=== PATIENT | male | born 1945 | race Caucasian/White ===

== ENCOUNTER 2019-10-16 08:46 | Inpatient (IN) | payer MEDICARE, SELFPAY ==
[2019-10-14 08:47] VITALS: BMI 33.7
[2019-10-16] VITALS (10 sets, daily range): BP systolic 107–153; BP diastolic 53–90; PULSE 73–86; RESP 15–20; TEMP 36.1–36.9; O2SAT 89–97; BMI 32.8
--- NOTE | 2019-10-16 | DI.RAD.S_ITS ---
PROCEDURE: XR HIP W PEL IF DONE RT 4V INDICATIONS: ANTERIOR HIP ARTHROPLASTY TECHNIQUE: For operative views of the hip acquired. COMPARISON: None. FINDINGS: Bones: Patient is status post total right hip hip arthroplasty, with hardware components in expected positions. The hip joint appears congruent. The visualized bony structures appear intact. Soft tissues: Overlying postoperative changes are noted. No suspicious soft tissue densities. IMPRESSION: Operative images demonstrate total right hip arthroplasty with no evidence of complications. Dictated by: Tahir Whitehead M.D. on 10/16/2019 at 14:29 Approved by: Tahir Whitehead M.D. on 10/16/2019 at 14:29
--- NOTE | 2019-10-16 06:00 | DI.RAD.S_ITS ---
PROCEDURE: XR HIP W PEL IF DONE RT 2V INDICATIONS: post op TECHNIQUE: 2 view(s) of the hip acquired. COMPARISON: [facility], CR, XR HIP W PEL IF DONE RT 4V, 10/16/2019, 12:04. FINDINGS: Bones: Patient is status post right total hip arthroplasty, with hardware components in expected positions. The hip joint appears congruent. The visualized bony structures appear intact. Soft tissues: Overlying postoperative changes are noted. No suspicious soft tissue densities. IMPRESSION: Post right total hip arthroplasty changes with anatomic right hip alignment. Dictated by: Itz Deng M.D. on 10/16/2019 at 20:00 Approved by: Itz Deng M.D. on 10/16/2019 at 20:00
[2019-10-16] MEDS: ACETAMINOPHEN 325 MG TABLET 975 MG PO (09:15)
[2019-10-16] MEDS: CELECOXIB 200 MG CAPSULE PO (09:16)
[2019-10-16] MEDS: PREGABALIN 75 MG CAPSULE PO (09:16)
[2019-10-16] MEDS: LACTATED RINGERS 1,000 ML 42 ML IV ×3 (09:17→14:01)
[2019-10-16] MEDS: VANCOMYCIN 1,000 MG/200 ML PIGGYBACK 200 MG IV (09:27)
--- NOTE | 2019-10-16 10:20 | PM.PREOP ---
Pre-operative Note Interval Note History & Physical reviewed/Exam performed by Physician: Yes Changes to H&P: No
--- NOTE | 2019-10-16 10:20 | PM.OP.1 ---
Operative Date/Time/Diagnoses Date of procedure: 10/16/19 Time of procedure: 10:50 Pre-op diagnosis: right hip OA Post-op diagnosis: same Procedure & Clinicians Procedure: right total hip arthroplasty anterior Same procedure as scheduled: Yes Indications: The patient has had progressively worsening right hip pain with radiographic changes consistent with arthritis. Non-operative management has failed and the patient has requested total hip replacement. The risks, benefits and alternatives to surgery were discussed with the patient prior to proceeding. Risks discussed included, but were not limited to, failure to relieve pain, leg length discrepancy, dislocation, stiffness, infection, nerve damage, deep venous thrombosis, pulmonary embolism, stroke, coma, heart attack, permanent paralysis and , as well as the potential need for eventual revision of the prosthetic. Surgeon: Steff Sal Cosmetic Counselor: Marcia Ramirez Anesthesia Type: General and Spinal Operative Notes Findings: Severe right hip osteoarthritis, adequate quality bone, good stability Closure Type: primary Specimen(s): none sent Prosthetic devices, grafts, tissues, transplants, or devices: Sal and Nephew 58 mm R3 cup, size 7 standard anthology, +0 by 36mm oxinium Estimated Blood Loss (mL): 250 Blood products transfused: none Procedure in detail: The patient was brought to the operating room. Patient was carefully positioned in the supine position. Time-out was performed and antibiotics were given. Anesthesia was induced. He was positioned in the on the table in order to allow hyperextension of the hip. The right lower extremity was prepped and draped in a standard sterile fashion. An anterior right hip incision was made 1 fingerbreadth lateral to the anterior superior iliac spine and extended distally towards the greater trochanter. Dissection was carried out through skin and subcutaneous tissues. The skin and subcutaneous tissues were carefully injected with Lidocaine with epi. Superficial hemostasis was achieved. The fascia over the tensor fascia arvin was defined and incised with a knife. Two Allis clamps were used to grasp the fascia. Tensor fascia arvin was retracted laterally. A gelpi retractor was placed. Dissection was carried out down along the neck. The circumflex vessels were carefully identified and cauterized with the Aqua Mantis. There was good visualization of the femoral neck. A Cobra was placed superior to the neck and the gluteus fibers were carefully stripped from that superior aspect of the capsule. A 2nd retractor was placed along the inferior aspect of the neck. The rectus insertion along the capsule was partially released. A 3rd retractor that was then gently placed over the rim of the acetabulum under the rectus. Capsule was carefully incised and released from the intertrochanteric line circumferentially superior to the mid sagittal line and inferiorly to the mid sagittal line until the lesser trochanter was palpable. A tag stitch was placed both in the superior and inferior limb of the capsular insertion. Along the acetabulum capsule was also released up to the mid sagittal 12:00 position. A portion of the labrum was resected. A saw was used to perform an osteotomy at the level of the intertrochanteric line and the junction of the superior femoral neck leaving approximately 1 finger breath of residual inferior neck above the lesser trochanter. A 2nd cut was made along the femoral neck at the base of the head and a napkin ring of neck was removed. Corkscrew was placed in the femoral head and the head was removed without difficulty. Retractors were then repositioned around the acetabulum. Residual labrum was resected and additional osteophytes were removed. A reamer that was 4 mm below the templated size was placed by hand in the acetabulum and it was reamed to centralize the acetabulum. It was then reamed up to 2 under the templated size and fluoroscopy was brought in to confirm the position of the reaming and depth of reaming. I reamed 1 under the anticipated size and touched the rim with line to line reaming. A trial cup was placed and noted that it was appropriately sized and fluoroscopy confirmed position and depth. The component was open and inserted without difficulty fluoroscopic imaging was used to confirm that the cup had been adequately seated and was well positioned. Neutral liner was placed. The cup was tested and noted to be stable. Attention was then directed to the femur. The femur was gently hyperextended additional capsular release was performed as needed in order to allow adequate visualization of the proximal femur with elevation of the femur. Patient was placed in a hyperextended slightly adducted position with maximum external rotation. Box osteotome was used to check for any residual neck as well as sclerotic bone along the trochanter. Sinclair pepper was placed in the femur. Additional broaching was performed. Canal finder was used to determine the alignment of the canal and position. Size 1 broach was placed. The canal was then appropriately broached up to the templated size as long as there was adequate stability of the broach and serial advancement of the broach without excessive impingement. Specific attention was directed at avoiding varus attempting to direct the distal aspect of the broach more anteriorly and avoiding excessive anteversion. Trial reduction showed acceptable range of motion, good stability, no posterior impingement, mandaen of leg length and appropriate lateral shuck. I also hyperflexed the hip and checked that there was no impingement anteriorly and there was good stability with flexion, adduction and internal rotation. Marcaine and Exparel were injected. The stem was placed without difficulty. Repeat trial reduction and x-ray showed acceptable overall position, length, and no evidence of the femoral fracture. Final head was placed. Wound was meticulously irrigated with normal saline. The hip was reduced and additional Exparel and Marcaine were injected. The capsule was closed with interrupted nonabsorbable sutures. The fascia of the tensor was closed with interrupted and running Vicryl. No drain was placed. Any tensor fascia arvin muscle that appeared to be contused or injured which was a minimal amount was carefully resected. Capsule around the tensor was injected with Exparel and Marcaine. The skin was closed with barbed stitches for the subcutaneous tissue and skin. We also used surgical glue. The wound was dressed sterilely. Brief Betadine soak was also used and was meticulously irrigated with normal saline. Patient was transferred to recovery room in satisfactory condition. Complications: none Post-operative Condition: stable Disposition: Acute Care Plan for aftercare: The patient will be maintained on a standard total hip replacement protocol with weight bearing as tolerated and anterior hip precautions. The patient will receive Aspirin and sequential compression devices for DVT prophylaxis. The patient will be discharged home when safe for the home environment.
[2019-10-16] MEDS: CEFAZOLIN 2 GM/100 ML FROZ.PIGGY IV ×2 (10:40→19:26)
[2019-10-16] MEDS: TRANEXAMIC ACID 1,000 MG VIAL 1000 MG INJ ×2 (10:42→13:43)
[2019-10-16] MEDS: BUPIVACAINE LIPOSOME 266 MG/20 ML VIAL INJ (11:20)
[2019-10-16] MEDS: BUPIVACAINE 0.25% W/ EPI 30 ML VIAL 60 ML INJ (11:20)
--- NOTE | 2019-10-16 11:27 | SUR.OPER ---
Supine on padded [place] table with bilateral legs secured in padded positioning boots and suspended in positioning spars, operative leg in traction per surgeon. Head on one pillow. Arm on non-operative side secured on padded armboard <90 degrees abduction. Arm on operative side padded and resting across chest then secured with tape over sheet. Padded perineal post in place per surgeon.
[2019-10-16] MEDS: ONDANSETRON 4 MG/2 ML INJ IV (17:12)
[2019-10-16] MEDS: LACTATED RINGERS 1,000 ML 125 ML IV (17:12)
[2019-10-16] MEDS: ACETAMINOPHEN 325 MG TABLET 650 MG PO (20:08)
[2019-10-16] MEDS: DOCUSATE 100 MG CAPSULE PO (20:08)
[2019-10-17 00:50] VITALS: BP 111/70; PULSE 84; RESP 16; TEMP 36.1; O2SAT 96
[2019-10-17] MEDS: LACTATED RINGERS 1,000 ML 125 ML IV (00:57)
[2019-10-17] MEDS: CEFAZOLIN 2 GM/100 ML FROZ.PIGGY IV (03:05)
[2019-10-17 03:45] VITALS: BP 114/65; PULSE 79; RESP 16; TEMP 37.1; O2SAT 98
[2019-10-17] MEDS: OXYCODONE IR 5 MG TABLET PO ×3 (05:06→12:12)
[2019-10-17 05:12] LABS: Hemoglobin 12.6 g/dL (13.5-17.5)
[2019-10-17] MEDS: ACETAMINOPHEN 325 MG TABLET 650 MG PO (06:23)
[2019-10-17 07:00] VITALS: BP 115/74; PULSE 74; RESP 17; TEMP 36.4; O2SAT 98
[2019-10-17] MEDS: NAPROXEN 250 MG TABLET 500 MG PO (08:45)
[2019-10-17] MEDS: DOCUSATE 100 MG CAPSULE PO (08:47)
--- NOTE | 2019-10-17 08:48 | P.PN_ITS ---
Subjective Subjective Date Patient Seen: 10/17/19 Time Patient Seen: 08:48 Interval history: Patient is POD#1 s/p right anterior JOSE ALBERTO with Dr. Sal. Pain has been moderate and well controlled with Oxycodone. Has not yet mobilized wiht PT but has been about the room. Voiding appropriately. Tolerating a diet. No nausea, vomiting, shortness of breath or chest pain. Exam Vital Signs (past 8 hours): - 10/17/19 00:50 10/17/19 03:45 10/17/19 07:00 Temperature 96.9 F L 98.8 F 97.5 F L Pulse Rate 84 79 74 Respiratory Rate 16 16 17 Blood Pressure 111/70 114/65 115/74 Pulse Oximetry 96 98 98 Oxygen Delivery Method Room Air Oxygen Flow Rate 0 Narrative Exam Narrative: Pleasant 74 year old male resting comfortably in bed, alert and oriented in no acute distress. Aquacel dressing in place over right hip is CDI. Patient able to fire ankle flexors and extensors. SILT in extremity. Palpable pedal pulse. Calves are soft, compressible. Objective Labs Result Diagrams: 10/17/19 05:00 Labs: Laboratory Results - last 24 hr 10/17/19 05:00 Hgb 12.6 L Hct 37.0 L Assessment & Plan Assessment & Plan narrative: Patient is doing well post operatively. Continue current pain regimen, Vistaril added for complaint of muscle discomfo rt. Patient is to work with PT today. ASA 81mg and SCDs for DVT prophylaixis. Discharge to home this afternoon pending clearance by PT. Quality VTE Deep Vein Thrombosis/Pulmonary Embolism Present on Admission: No
--- NOTE | 2019-10-17 10:06 | PC.NURSE ---
Pt is A&Ox3, he has worked with physical therapy and is now able to discharge home. Dressing is anterior approach with aquacel in place. Given 1 percolone and naproxen for discomfort. Pt is resting comfortably. His neighbor is going to be here to go over some proper mechanics with him around 1200.
--- NOTE | 2019-10-17 12:32 | PT.IIE ---
Current Diagnoses Unilateral primary osteoarthritis, right hip (10/16/19) Pain in right hip (10/16/19) Surgery Performed Operation Date: 10/16/19 10:45 Actual Procedures p Total Hip Arthroplasty/Anterior Approach(Right) - Steff Sal MD Surgical History (Last Updated 10/14/19 @ 09:10 by Maribel Lamb RN) H/O vasectomy (Acute) Hx of hernia repair (Acute) Medical History (Last Updated 10/14/19 @ 09:10 by Maribel Lamb RN) Gout (Acute) Kidney stone (Acute) Osteoarthritis (Acute) Physical Therapy Inpatient Evaluation/Re-Eval M1 PT/OT-IP Prior Functional Status Start: 10/17/19 08:13 Freq: NEEDED Status: Active Protocol: Document 10/17/19 08:40 JG (Rec: 10/17/19 10:50 JG [id number]) Medical Review Prior Functional Status Medical History Reviewed Yes Diet/Fluid Consistency Regular Communication No noted deficits. Pt able to make needs known. Mobility and Gait Pt reports I with mobility and gait prior to surgery, with limited tolerance d/t pain. Activities of Daily Living and IADL's Pt was I with ADLs and IADLs. Prior Functional Level (Other details) Pt was able to drive prior to surgery. Pt notes that he was very active prior to surgery. Social History Household Members spouse Living Arrangements House Number of Floors (Floors) Two Floors Number of Stairs To Enter/Railing? 2 platform CAITLYN (no railing) Home Environment Standard Height Toilet,Tub/ Shower Home Equipment Four Wheel Walker,Straight Cane,Tub Transfer Bench Employment Status Retired Additional Social History Comment Pt lives in 2-story home in [place] with his . Pt's will be available to assist during the day as needed. He has 2 platform CAITLYN the main living area. 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 M2 PT-IP Current Condition Start: 10/17/19 08:13 Freq: NEEDED Status: Active Protocol: Document 10/17/19 08:40 JG (Rec: 10/17/19 10:50 JG [id number]) Physical Therapy Current Condition Current Condition Evaluation Date 10/17/19 Treatment Diagnosis R JOSE ALBERTO anterior, difficulty walking, limited activity tolerance Onset Date 10/16/19 Precautions Anterior Hip Precautions No Hip Extension,No Hip External Rotation Weight Bearing Status Weight Bearing Status Weight Bear as Tolerated M3 PT-IP Subjective Start: 10/17/19 08:13 Freq: NEEDED Status: Active Protocol: Document 10/17/19 08:40 JG (Rec: 10/17/19 10:50 JG [id number]) Subjective Physical Therapy Visit Type Type Initial Evaluation Visit Start Time 08:40 Visit Stop Time 09:16 Total Visit Minutes 36 Notes IE led by SPT Brent, supervised by PT Valentino Number of MEDICAL CONCIERGE Visits 0 Physical Therapy Visit Comments Patient Comments I had some trouble getting out of bed last night. So far I'm feeling good today. Patient Goals Return home Therapy Pain Assessment Pain When Pain Assessed During Mobility Pain Present Pain Present Pain Reported Location R hip Description Aching,Acute,With Movement Pain Management Techniques Distraction,Timing of Activity with Medications M4 PT-IP Mobility and Gait Start: 10/17/19 08:13 Freq: NEEDED Status: Active Protocol: Document 10/17/19 08:40 JG (Rec: 10/17/19 10:50 JG [id number]) PT-Bed Mobility Assessment Supine to Sit Supine to Sit Minimal Assistance,1 Person Assistance Scooting Scooting to Edge of Bed Contact Guard Assistance PT-Transfer Assessment Sit to and From Stand Sit to and from Stand Contact Guard Assistance,Use of Upper Extremities Equipment Transfer Assistive Device Gait Belt,Front Wheeled Walker Orthotic/Prosthetic Devices or Brace: No Transfers Transfer Destination Chair Transfer Technique ambulate with FWW Transfer Ability Level of Assist Contact Guard Assistance,Use of Upper Extremities Comments Mobility Comments Pt in bed upon assessment. Educated pt on precautions. BP 156/71 but stable throughout mobility and ambulation. Pt required min A for supine to sit to support R LE with mod cuing and inc'd time to complete. Pt able to scoot to EOB CGA and sit to stand CGA with cuing for UE pushoff. Pt ambulated to bathroom to void, and then to the stairs to complete stair training and back to room. Pt required initial CGA but able to complete with no more than SBA after stair training. Pt demonstrates gait 90% WNL with slightly dec'd stride length and R stance time. Pt able to complete stand to sit to chair with CGA and cuing to use armrests for support. Pt left in chair with call light and needs within reach, in room. Gait Assessment Gait Gait Assistance Required: Standby Assistance,Contact Guard Assist Distance (Feet) 200 Able to Maintain Weight Bearing Status Yes During Gait Assistive Devices Assistive Device Gait Belt,Front Wheeled Walker Orthotic/Prosthetic Devices or Brace: No Gait Deviations General Gait Pattern Antalgic,Decreased Stride Length Factors Limiting Gait Function Factors Limiting Gait Function Decreased Activity Tolerance, Decreased Strength,Limited Range of Motion,Pain,Poor Balance Comments Gait Comments see mobility comments Stair Climbing Assessment Evaluation Level of Assist On Stairs Contact Guard Assistance Devices Stair Climbing Assistive Devices Front Wheel Walker Technique/Endurance Stair Climbing Direction Ascend and Descend Stair Climbing Technique Step to Step Number of Steps Climbed 1 Query Text: Stair Climbing Set # Repetitions (reps) 2 Comments Stair Climbing Comments Educated pt re: using phrase up with the good, down with the bad for stair climbing. Pt able to complete stair training to platform step with FWW and with CGA and good stability. PT-Balance Assessment Sitting Balance and Reactions Static Sitting Balance Ability Good Dynamic Sitting Balance Ability Good Standing Balance and Reactions Static Standing Balance Ability Good Dynamic Standing Balance Ability Fair Device Used FWW M5 PT-IP Objective Assessments Start: 10/17/19 08:13 Freq: NEEDED Status: Active Protocol: Document 10/17/19 08:40 JG (Rec: 10/17/19 10:50 JG [id number]) Orientation Orientation/Cognition Level of Alertness Alert Orientation Name,Day of Week,Place, Situation Language Function Ability No Deficits Noted Safety Awareness Understands Safety Issues Memory Description No Deficits Noted Comments No noted cognitive or communication deficits. Gross Range of Motion Upper Extremity ROM Assessment Within Functional Limits Lower Extremity ROM Assessment Right Impaired Impairments R limited d/t pain Strength Upper Extremity Strength Assessment Within Functional Limits Lower Extremity Strength Assessment Right Impaired Hip 4/5 Knee 4/5 Ankle 4/5 Sensation Assessment Sensation Gross Sensation WNL Muscle Tone Muscle Tone WNL Yes M6 PT-IP Treatment Start: 10/17/19 08:13 Freq: NEEDED Status: Active Protocol: Document 10/17/19 08:40 JG (Rec: 10/17/19 10:50 JG [id number]) Physical Therapy Treatment Education Education Provided Precautions,Weight Bearing Status,Post-Op Packet,Safety Other Treatments Other Treatment Performed Educated pt on using gait belt to assist with R LE support during bed mobility. Educated pt and re: need to acquire FWW to improve safety and stability during early phase of recovery from surgery . Pt and agreed, and stated she would ask to borrow one from a friend. Provided with DME provider list in case pt is unable to acquire one from a friend. M7 PT-IP Assessment and Plan Start: 10/17/19 08:13 Freq: NEEDED Status: Active Protocol: Document 10/17/19 08:40 JG (Rec: 10/17/19 10:50 JG [id number]) PT Summary Assessment and Plan Potential Rehabilitation Potential Excellent Status of Condition at Evaluation Stable Summary Impairments Pain,ROM,Strength,Balance,Bed Mobility,Transfers,Gait, Activity Tolerance Assessment Summary Pt is low complexity 74 yo male 1 day s/p R JOSE ALBERTO anterior approach. Pt required min A and inc'd time to complete d/t difficulty moving R LE. Pt required no more than CGA for transfers, ambulation, and stair climbing. Pt demonstrated good stability and safety awareness throughout session. Pt safe for d/c to home with assist and OP PT once medically cleared. Frequency of Treatment Frequency Of Treatment Discharge Recommendations To Nursing Amount of Assist Needed 1 Person Assist Discharge Recommendations PT Discharge Recommendations Home with Assistance, Outpatient PT note reviewed by Valentino, PT
--- NOTE | 2019-10-18 12:35 | CM.IDA ---
Late Entry Initial DCP Assessment Note: Pt is a 74 yo male, resident of [place], POD#1 from hip surgery w/ Dr Sal PCP: Kuldeep Nelson Payer: Medicare/[facility] Reviewed chart yesterday, pt discussed in multidisciplinary rounds in the morning and was expected to DC home. Therapy cleared pt for return home w/family to assist and pt planned for home, DC order from Ortho PA had already been initiated in the morning and pt DC home as expected. No needs from DC planning team identified 10.17.19 . JUAN Canela
== END 2019-10-17 12:15 | disposition home or self-care (01) | DRG 470 ==
PROVIDERS: Admitting Provider Orthopaedic Surgery; PCP Family Medicine; Visit Provider Orthopaedic Surgery
PROC: 0SR902Z Replacement of Right Hip Joint with Metal on Polyethylene Synthetic Substitute, Open Approach (ICD-10-PCS; CPT 27130; principal; 2019-10-16 10:45)
DX: M16.11 Unilateral primary osteoarthritis, right hip (principal); Z87.891 Personal history of nicotine dependence
CPT/HCPCS: 36415; 73502; 73503; 76000; 85014; 85018; 97161; 97530; C1776; C9290; J0461; J0690; J1100; J1170; J2405; J2704

== ENCOUNTER 2019-12-22 07:13 | Day surgery (SDC) | payer MEDICARE, SELFPAY ==
[2019-10-16 09:49] VITALS: BMI 32.8
[2019-12-19 14:57] VITALS: BMI 34.4
[2019-12-22] VITALS (8 sets, daily range): BP systolic 106–165; BP diastolic 77–92; PULSE 64–81; RESP 10–18; TEMP 36.1–36.7; O2SAT 93–98; BMI 33.4
[2019-12-22] MEDS: LACTATED RINGERS 1,000 ML 42 ML IV (08:24)
--- NOTE | 2019-12-22 08:44 | PM.PREOP ---
Pre-operative Note Interval Note History & Physical reviewed/Exam performed by Physician: Yes Changes to H&P: No
[2019-12-22] MEDS: CEFAZOLIN 2 GM/100 ML FROZ.PIGGY IV (08:50)
[2019-12-22] MEDS: BUPIVACAINE 0.5% (PF) VIAL 30 ML INJ (09:16)
--- NOTE | 2019-12-22 10:28 | PM.OP.1 ---
Operative Date/Time/Diagnoses Date of procedure: 12/22/19 Time of procedure: 10:10 Pre-op diagnosis: Right inguinal hernia reducible Post-op diagnosis: same (Indirect hernia with 2 large lipomas adjacent to the cord.) Procedure & Clinicians Procedure: Repair with plug and patch technique Same procedure as scheduled: Yes Indications: Symptomatic right inguinal hernia Surgeon: Ventura Craven Click Yes if Unassisted: Yes Anesthesia Type: General Operative Notes Findings: Indirect sac. Two large lipomas of the cord Closure Type: primary Specimen(s): none sent Prosthetic devices, grafts, tissues, transplants, or devices: Mesh Estimated Blood Loss (mL): 10 Blood products transfused: none Procedure in detail: The patient was placed supine on the operating room table and underwent general LMA anesthesia. He was prepped and draped in the usual fashion. A transverse incision was made overlying the internal ring and carried down to the level of the external oblique. The external oblique was opened parallel with its fibers through the external ring. The cord structures were elevated. The cremaster was opened proximally and search made for an indirect sac. There were 2 large fatty masses adjacent to the cord structures which were from surrounding structures ligated proximally and removed. There was a indirect sac identified and from surrounding structures. It was transected as it had no contents and opened and suture ligated at the level the deep epigastric vessels. Distal portion was removed and the stump allowed to retract. A medium-sized plug was placed in the defect created and tacked into place with interrupted Ethibond suture. The cremaster was closed over it.. The floor was examined and was found to be fairly intact.. A patch was placed across the floor and tacked at the pubic tubercle, the posterior lamella of the anterior rectus sheath, the ilioinguinal ligament, and superior lateral to the cord. The opening was modified as necessary to prevent tight constriction of the cord. Sutures of 0 Tycron were used to secure the mesh. The external oblique was closed with a running 3 0 Vicryl. The subcu was closed with interrupted 4 0 Vicryl. The skin was closed with a running 4 0 Vicryl subcuticular stitch and Steri-Strips. Dressing was applied, the patient was awakened, and the patient was taken to the recovery area in good condition. Complications: none Post-operative Condition: stable Disposition: PACU Plan for aftercare: Follow-up in the office
[2019-12-22] MEDS: ACETAMINOPHEN 325 MG TABLET 650 MG PO (11:30)
--- NOTE | 2019-12-22 17:51 | SUR.PHASEII ---
Late entry: Pt asked for pain med prior to discharge, medicated with tylenol per pt request. Dressing to r groin c/d/i. Pt assisted to BR steady when up, voideded. Left when ready and left unit in stable condition.
== END 2019-12-22 11:35 | disposition home or self-care (01) ==
PROVIDERS: PCP Family Medicine; Referring Provider Specialist; Visit Provider Specialist
PROC: (CPT 49505; principal; 2019-12-22 09:15)
DX: K40.90 Unilateral inguinal hernia, without obstruction or gangrene, not specified as recurrent (principal); D17.6 Benign lipomatous neoplasm of spermatic cord
CPT/HCPCS: 49505; C1781; J0690; J2704; J3010

== ENCOUNTER → 2023-01-03 09:39 | Outpatient (CLI) | payer MEDICARE, SELFPAY ==
[2019-10-16 09:49] VITALS: BMI 32.8
[2023-01-03 11:09] LABS: Appearance Urine UA CLEAR; Bilirubin Urine UA NEGATIVE (NEGATIVE); Color Urine UA YELLOW; Glucose Urine UA NEGATIVE (Negative); Ketones Urine UA NEGATIVE (NEGATIVE); Leukocyte Esterase Urine UA NEGATIVE (NEGATIVE); Nitrite Urine UA NEGATIVE (Negative); Occult Blood Urine UA NEGATIVE (Negative); Protein Urine UA NEGATIVE (Negative); Specific Gravity Urine UA 1.025 (1.000-1.035); Urobilinogen Urine UA 0.2 E.U./dL (0.2)
[2023-01-03 11:17] LABS: Bacteria Urine None Seen; RBC Urine None Seen (0-5/HPF); WBC Urine None Seen (0-5/HPF)
[2023-01-03 11:18] LABS: Culture Indicated Urine Cult Not Indicated; Urine Comments Microscopic Normal
[2023-01-03 11:20] LABS: Add Manual Diff / Slide Review NO; Basophils Absolute Auto 100 /uL (0-100); Eosinophils Absolute Auto 100 /uL (0-450); Eosinophils Percent Auto 2.3 % (2-4); Hematocrit 41.7 % (41-53); Hemoglobin 14.5 g/dL (13.5-17.5); Lymphocytes Absolute Auto 1900 /uL (1100-4500); Lymphocytes Percent Auto 31.9 % (25-40); Mean Corpuscular HGB Conc 34.7 % (30-36); Mean Corpuscular Hemoglobin 30.7 PG (26-34); Mean Corpuscular Volume 88.6 fL (80-100); Monocytes Absolute Auto 600 /uL (0-900); Monocytes Percent Auto 10.2 % (3-14); Neutrophils Absolute Auto 3200 /uL (1500-7000); Neutrophils Percent Auto 54.6 % (50-75); Platelet Count 171 X10^3/uL (150-400); Red Cell Distribution Width 13.6 % (11.6-14.8); White Blood Cell Count 5.8 X10^3/uL (4.5-11.0)
[2023-01-03 11:44] LABS: Hemoglobin A1C% w Est Avg Glu 5.8 % (4.0-6.0)
[2023-01-03 11:51] LABS: BUN Creatinine Ratio 16.9 (6-22); Blood Urea Nitrogen 15 mg/dL (9-20); Calcium 9.2 mg/dL (8.4-10.2); Carbon Dioxide 27 mmol/L (22-32); Chloride 103 mmol/L (98-107); Estimated Glomerular Filt Rate > 60 mL/min (>60); Glucose 104 mg/dL (80-110); HEMOLYSIS < 15 (0-50); Potassium 4.6 mmol/L (3.4-5.1); Sodium 139 mmol/L (137-145)
== END ==
PROVIDERS: PCP Family Medicine; Referring Provider Orthopaedic Surgery; Visit Provider Orthopaedic Surgery
DX: Z01.818 Encounter for other preprocedural examination (principal); R73.9 Hyperglycemia, unspecified; Z01.812 Encounter for preprocedural laboratory examination; N39.0 Urinary tract infection, site not specified
CPT/HCPCS: 36415; 80048; 81001; 83036; 85025; 93005